=== PATIENT | female | born 1935 | race Caucasian/White ===

== ENCOUNTER 2017-09-06 08:30 | Emergency (ER) | payer MEDICARE, OTHER ==
[~2017-09-06] VITALS: Ht 144.8 cm; Wt 31.8 kg
[2017-09-06] MEDS ORDERED: SODIUM CHLORIDE 0.9% 500 ML IVB ONE (09:01)
[2017-09-06 09:47] LABS: Basophils # (auto) 0 uL; Eosinophils # (auto) 0 uL; Lymphocytes # (auto) 0.9 uL; Monocytes # (auto) 1.2 uL; Monocytes % (auto) 10.6 % (0.0-12.0); Red Blood Cells 3.67 10^6/uL (4.0-5.20); White Blood Cell 11.6 10^3/uL (4.4-10.8)
[2017-09-06 09:49] LABS: Basophils % (auto) 0.1 % (0.0-2.0); Hematocrit 31.4 % (36.0-46.0); Hemoglobin 9.7 g/dL (12.2-16.2); Lymphocytes % (auto) 8.1 % (10.0-50.0); Mean Corpuscular Hemoglobin 26.4 pg (28.0-32.0); Mean Corpuscular Hgb Conc. 30.8 g/dL (32.0-36.0); Mean Corpuscular Volume 85.7 fL (80.0-100.0); Neutrophils # (auto) 9.4 uL; Neutrophils % (auto) 81.2 % (37.0-80.0); Nucleated Red Blood Cells % 1.8 %; Platelet Count (auto) 268 10^3/uL (140-450); Red Cell Distribution Width 16.4 % (11.8-14.3)
[2017-09-06 10:16] LABS: Albumin 3.1 g/dL (3.4-5.0); BUN/Creatinine Ratio 48.2; Bilirubin, Total 1.1 mg/dL (0.2-1.0); Calcium 8.7 mg/dL (8.5-10.1); Potassium 5.4 mmol/L (3.5-5.1); Total Protein 6.5 g/dL (6.4-8.2)
[2017-09-06] MEDS ORDERED: SODIUM CHLORIDE 0.9% 500 ML IV ONE (12:45)
[2017-09-06 16:08] VITALS: BP 90/48
== END 2017-09-06 16:13 | disposition home or self-care (01) ==
LOC: EDBD 08:30 → ER 08:30
DX: M54.9 Dorsalgia, unspecified (principal); M79.1 Myalgia; E86.0 Dehydration; E87.5 Hyperkalemia; I48.91 Unspecified atrial fibrillation; J44.9 Chronic obstructive pulmonary disease, unspecified; I10 Essential (primary) hypertension
CPT/HCPCS: 36415; 72131; 80053; 83690; 85025; 93005; 94761; 96360; 96361; 99285; J7040